=== PATIENT | female | born 2000 | race Caucasian/White ===

== ENCOUNTER 2023-07-07 17:18 | Emergency (ER) | payer BC, SELFPAY ==
[2023-07-07 17:35] VITALS: BP 122/76; PULSE 94; RESP 16; TEMP 37.3; O2SAT 100
--- NOTE | 2023-07-07 18:19 | ED.SKABFB ---
HPI - Skin/Abscess/Foreign Bdy General Chief complaint: Skin/Abscess/Foreign Body Stated complaint: Cat bite left hand (finger) Time Seen by Provider: 07/07/23 18:00 Source: patient, RN notes reviewed and old records reviewed Mode of arrival: ambulatory Limitations: no limitations History of Present Illness HPI narrative: 22 year old female with complaints of sustaining a cat bite last night to middle finger left hand, puncture wound noted sanon aspect between PIP and DIP of middle left finger. Patient reports that she has cleansed her wound with antibacterial soap and water and triple antibiotic ointment and bandage applied.. Patient reports that her tetanus is not up to date.Cat was her own personal cat and immunizations are up to date on cat.Today patient reports that redness and swelling have increased and discomfort to area. MD complaint: other (cat bite) Onset (ago): day(s) (since last night) Tetanus up to date: no Location: L hand (middle finger) Severity scale (1-10): 6 Treatments prior to arrival: other (soap and water) Related Data Home Medications Medication Instructions Recorded Confirmed etonogestrel 0.12 mg-ethinyl vag ring vaginal 07/07/23 estradiol 0.015 mg/24 hr vaginal ring (EluRyng) Allergies Allergy/AdvReac Type Severity Reaction Status Date / Time No Known Allergies Allergy Verified 07/07/23 17:54 Review of Systems Review of Systems: CONSTITUTIONAL: Denies fever, chills, or sweats. CARDIOVASCULAR: Denies chest pain, palpitations, or edema. RESPIRATORY: Denies cough or dyspnea. GASTROINTESTINAL: Denies abdominal pain, nausea, vomiting SKIN: Reports redness and swelling. cat bite to the middle left finger, no purulent drainage,no vesicles, bullae, numbness, pain beyond proportion MUSCULOSKELETAL: Denies myalgia. NEUROLOGIC: Denies headache, numbness All systems reviewed & are unremarkable except as noted in HPI and below PMFSH Past Medical History Medical History (Updated 07/09/23 @ 17:36 by Viridiana Schroeder NP) Madelung's disease right arm Surgical History Surgical History (Updated 07/09/23 @ 17:36 by Viridiana Schroeder NP) History of bladder surgery reflux surgery X3 Social History Social History (Updated 07/09/23 @ 17:37 by Viridiana Schroeder NP) Smoking status: Never smoker Alcohol intake: never Substance use: never Living arrangements: with family Occupation/Education: student Gender identity (if verbalized by the patient): Female Comments At time of signature, agree with nursing past medical, surgical, social and family history. There is no relevant family history pertinent to the presenting complaint Exam Narrative: GENERAL: Well-appearing, well-nourished, and in no acute distress. HEAD: Normocephalic, atraumatic. EYES: PERRLA and EOMI. ENT: Nares clear, no rhinorrhea or epistaxis. Mucous membranes moist.TM's normal throat pink with no swelling noted NECK: Supple.no lymphadenopathy CHEST: Clear to auscultation. No respiratory distress.SAO2 100% on room air HEART: Regular rate and rhythm. No murmur heard. Normal peripheral pulses. ABDOMEN: Soft, nontender, nondistended, normal active bowel sounds. EXTREMITIES: Normal range of motion. No edema. SKIN: Warm, dry. 4.5cm X0,5 circumferential redness around left middle finger, puncture wound sanon aspect between DIP and PIP induration, tenderness, no acute warmth or any drainage noted from wound, No vesicles, NEURO: No focal deficits. Alert and oriented x3. Course Course Emergency Course: Patient is aware of diagnosis, understands and agrees to treatment plan. Anticipatory guidance given. Patient agrees to follow-up as directed and is aware of reasons to seek care at the emergency department. Portions of this record may have been created with voice recognition software Level of Care: Express Care Visit Vital Signs Vital signs: Vital Signs Temperature 37.3 C 07/07/23 17:35 Pu
[2023-07-07] MEDS: TETANUS,DIPHTHERIA,AC PERTUSSIS ADULT (0.5 ML) BOOSTRIX IM (18:41)
== END 2023-07-07 18:45 | disposition home or self-care (01) ==
PROVIDERS: Emergency Provider Registered Nurse
DX: S61.252A Open bite of right middle finger without damage to nail, initial encounter (principal); W55.01XA Bitten by cat, initial encounter; Z23 Encounter for immunization
CPT/HCPCS: 90471; 90715; 99213; G0463